=== PATIENT | female | born 1950 | race African-American/Black ===

== ENCOUNTER → 2017-03-17 | Outpatient (CLI) | payer OTHER, MEDICARE ==
[~2017-03-17] MED LIST: ALREX5 M1 OD; AVALIDE 150-121 EACH PO; CELEBREX PO; CELEXA PO; COLACE PO; DECADRON PO; MAXZIDE 75/50 T1 TA1 PO; MAXZIDE 75/50 T1 TAB PO; PHENERGAN PO; PHENERGAN25 M1 PO; PRED FORTE1 ML OU; REVLIMID25 MG PO; VICODIN 5/1 TAB 5/50 PO; VICODIN 5/500 T1 TAB PO; VITAMIN D50000 UNIT PO; ZANTAC150 M1 PO; ZOVIRAX400 MG PO
--- NOTE | ~2017-03-17 | XA51 ---
[facility] A Service of [facility] & [facility] RADIOLOGY TEXT RESULTS PATIENT: KATHARINA VASQUEZ LOCATION: [facility] : 50 UNIT #: [id number] AGE: [address]: Jefferson Andrade MD SEX: F ORDER DR: [id number] [facility] [address] [place], [place] [address] [id number] O MR#: [id number] Acc #: [id number] NAME: KATHARINA VASQUEZ. : 1950 SEX: F STUDY DATE/TIME: 03/17/2017 9:55 UNIT: [facility] ROOM: STUDY DESCRIPTION: XA BX Bone Marrow Attending Physician: Jefferson Andrade M.D. Ordering Physician: Jefferson Andrade M.D. Primary Care Physician: Man Mercer M.D. MEDICAL IMAGING REPORT This report is preliminary unless electronic signature is present EXAM XA BX bone marrow biopsy. INDICATION Possible myeloma. Patient has not been in remission. Most recent bone marrow biopsy was January 25, 2016. FINDINGS Please see CT guide for results. Dictated by... Ruthy Joseph M.D. THIS IS AN ELECTRONICALLY VERIFIED REPORT Ruthy Joseph M.D. at 03/18/2017 12:55 PM AFF/tmw TD: 03/18/2017 09:09 JOB #: [id number] MEDICAL IMAGING REPORT Page 1 of 1 COPY
--- NOTE | ~2017-03-17 | CT134 ---
[facility] A Service of [facility] & [facility] RADIOLOGY TEXT RESULTS PATIENT: KATHARINA VASQUEZ LOCATION: [facility] : 50 UNIT #: [id number] AGE: [address]: Jefferson Andrade MD SEX: F ORDER DR: [id number] [facility] [address] [place], [place] [address] [id number] O MR#: [id number] Acc #: [id number] NAME: KATHARINA VASQUEZ. : 1950 SEX: F STUDY DATE/TIME: 03/17/2017 9:55 UNIT: [facility] ROOM: STUDY DESCRIPTION: CT Guide Attending Physician: Jefferson Andrade M.D. Ordering Physician: Ruthy Joseph M.D. Primary Care Physician: Man Mercer M.D. MEDICAL IMAGING REPORT This report is preliminary unless electronic signature is present EXAM CT-guided bone marrow biopsy. This CT exam was performed with one or more of the following radiation dose reduction techniques: automatic exposure control, adjustment of mA and/or kV according to patient size, and iterative reconstruction. INDICATION Possible myeloma. Patient has not been in remission. Most recent bone marrow biopsy was January 25, 2016. PROCEDURE The risks, benefits, and alternatives to the procedure were explained to the patient, and signed, informed consent was obtained. She was placed prone on the CT scanner gantry. Preliminary CT scan was performed in the region of interest. An appropriate site overlying the left iliac bone was selected. Overlying skin was marked. Patient was prepped and draped in the usual sterile fashion. Time-out was performed as per protocol. Skin and subcutaneous tissues were anesthetized with buffered lidocaine and bone marrow biopsy needle was advanced into the left iliac bone. Repeat CT scan confirmed appropriate position of the needle which was then advanced into the bone marrow and a bone marrow aspirate was obtained. The needle was advanced further into the bone marrow and removed with yielded an adequate core sample. Manual pressure was applied until hemostasis was obtained. Patient did receive conscious sedation consisting of 4 mg of Versed and 150 mg of fentanyl and continuous monitoring was provided by the IVR nurse. Total sedation time was 15 minutes. IMPRESSION Technically successful CT-guided bone marrow biopsy. CT was used during the procedure and permanent images were saved. [facility] A Service of [facility] RADIOLOGY TEXT RESULTS PATIENT: KATHARINA VASQUEZ LOCATION: [facility] : 50 UNIT #: [id number] AGE: [address]: Jefferson Andrade MD SEX: F ORDER DR: Dictated by... Ruthy Joseph M.D. THIS IS AN ELECTRONICALLY VERIFIED REPORT Ruthy Joseph M.D. at 03/18/2017 12:55 PM AFF/tmdennise TD: 03/18/2017 09:08 JOB #: [id number] MEDICAL IMAGING REPORT Page 1 of 1 COPY
[2017-03-17 07:44] LABS: HEMATOCRIT 23.9 % (35.0-45.0); HEMOGLOBIN 7.8 gm/dL (12.0-16.0); MEAN CELL VOLUME 84.7 FL (83-96); MEAN CORPUSCULAR HEMOGLOBIN 27.5 PG (28-34); MEAN CORPUSCULAR HGB CONC 32.5 g/dL (30-36); MEAN PLATELET VOLUME 8.7 FL (6.5-11.5); RED BLOOD COUNT 2.82 X10e (3.90-5.30); RED CELL DISTRIBUTION WIDTH 16.7 % (11.0-15.5)
[2017-03-17 07:51] LABS: PARTIAL THROMBOPLASTIN TIME 20.5 SECONDS (23.5-31.3)
== END | disposition home or self-care (01) ==
LOC: CIVR 07:03
PROVIDERS: Internal Medicine Hematology
DX: C90.00 Multiple myeloma not having achieved remission (principal); D47.2 Monoclonal gammopathy
CPT/HCPCS: 38221; G0364; 36415; 77002; 77012; 85027; 85610; 85730; 88237; 88271; 88275; 88305; 88311; 99144; 99152; 99153; J2250; J3010